=== PATIENT | female | born 1995 | race African-American/Black ===

== ENCOUNTER 2020-11-21 19:39 | Observation (INO) | payer OTHER ==
[~2020-11-21] VITALS: Ht 162.6 cm; Wt 77.6 kg
[2020-11-21] MEDS ORDERED: PNV1TABL76 PO (22:36)
== END 2020-11-21 22:52 | disposition home or self-care (01) ==
LOC: 8 EST LDRP 19:39
PROVIDERS: ADMIT Specialist; ATTEND Specialist
DX: O99.891 Other specified diseases and conditions complicating pregnancy (principal); M54.9 Dorsalgia, unspecified; O26.893 Other specified pregnancy related conditions, third trimester; R10.30 Lower abdominal pain, unspecified; Z3A.30 30 weeks gestation of pregnancy; V49.9XXA Car occupant (driver) (passenger) injured in unspecified traffic accident, initial encounter; Y92.89 Other specified places as the place of occurrence of the external cause; Y93.89 Activity, other specified; Y99.8 Other external cause status
CPT/HCPCS: 59025; 76805; 76818; G0378; 99281